=== PATIENT | female | born 1985 | race Hispanic/Latino ===

== ENCOUNTER 2022-12-22 08:08 | Emergency (ER) | payer OTHER ==
[2022-12-22] MEDS ORDERED: Morphine 4 MG/ML VIAL ONE (08:26)
== END 2022-12-22 10:16 | disposition home or self-care (01) ==
LOC: ERS 08:08
DX: S90.32XA Contusion of left foot, initial encounter (principal); Z87.891 Personal history of nicotine dependence; W20.8XXA Other cause of strike by thrown, projected or falling object, initial encounter
CPT/HCPCS: 96374; J2270